=== PATIENT | female | born 1990 | race Caucasian/White ===

== ENCOUNTER 2016-08-25 22:10 | Emergency (ER) | payer OTHER ==
--- NOTE | 2016-08-25 23:29 | DIAGNOSTIC IMAGING REPORT ---
PROCEDURE: US VENOUS - RIGHT EXT INDICATION: SWELLING TECHNIQUE: Duplex sonography of the deep venous system in the right lower extremity was performed. Compression and augmentation techniques were used. COMPARISON: None. FINDINGS: Normal compression of the greater saphenous, common femoral, superficial femoral, popliteal, peroneal, and posterior tibial veins. Normal augmentation. There is no evidence of deep venous thrombosis. Varicose veins in the upper thigh with thrombus which appears to arise from the anterolateral accessory vein. IMPRESSION: 1. No evidence of a right lower extremity DVT 2. Superficial phlebitis of the varicose vein arising from the anterolateral accessory vein.
--- NOTE | 2016-08-25 23:45 | ED NURSING NOTES ---
Clinical Report - Nurses [facility] [address] [place] [address] 08/25/2016 22:12 Patient: IGOR TAYLOR TRIAGE Triage time 22:18. Acuity: LEVEL 3. Chief Complaint: RIGHT LOWER EXTREMITY PAIN, SWELLING and REDNESS. --22:33 Orly Pena R.N. 22:18 08/25/16. BP: 130/50 taken on the left arm, while sitting. HR: 85 (regular and normal rate). RR: 18. O2 saturation: 98% on room air. Temp: 98.1 F (oral). Pain level now: 09/28. --22:33 Orly Pena R.N. Weight: 134.2 kg stated. Height/Length: 68 inches Per Patient. BMI: 45. --22:23 Orly Pena R.N. Medications Albuterol Sulfate Inhalation 2 puffs, PRN. --22:29 Orly Pena R.N. Allergies No Known Drug Allergy. --22:29 Orly Pena R.N. History Arrived by private vehicle. Historian: patient. Unaccompanied. Primary physician (none). No injury occurred. This occurred (wednesday). ( redness and swelling noted to outer thigh on Wednesday extending toward upper thigh gradually since with increased pain.). She has had mild trouble walking. The patient has been limping when trying to walk. 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 PAST MEDICAL HX: Deep vein thrombosis (in 2012). Last normal menstrual period- May 28 2016. 2. Para 1. Sexual history - sexually active. Confirmed : LNMP: May 28 2016. In 1st trimester. confirmed with sonogram. Has had care by coordinator of genetic services. G 2. P 1. SOCIAL HX: Light tobacco smoker (cigarette)- less than 1/2 a pack per day. History of drug use: marijuana. (in 2016). No alcohol use. No infectious disease exposure. ABUSE ASSESSMENT: No report of abuse. SELF HARM ASSESSMENT: A self harm assessment was performed. The patient answered "no" to the question "Have you recently felt down, depressed, or hopeless?", "Have you noticed less interest or pleasure in doing things?", "Do you have thoughts of harming or killing yourself?", "Are you here because you tried to hurt yourself?", "Have you ever tried to hurt yourself before today?", "Have you recently had thoughts about harming or killing others?" and "Do you have any dangerous items in your possession?". FALL RISK ASSESSMENT: Fall risk assessment completed. No fall risk identified. NUTRITIONAL RISK ASSESSMENT: The nutritional risk assessment revealed no deficiencies. FUNCTIONAL ASSESSMENT: Functional assessment: no impairments noted. LEARNING NEEDS ASSESSMENT: The learning needs assessment revealed no barriers. SKIN INTEGRITY ASSESSMENT: Skin integrity risk assessment completed. No skin integrity risk identified. --22:33 Orly Pena R.N. PROBLEMS: . Asthma. --22:29 Orly Pena R.N. ADDITIONAL SURGERIES: Tonsillectomy. --22:29 Orly Pena R.N. Interventions ID band on patient. --22:33 Orly Pena R.N. PHYSICAL ASSESSMENT Ambulatory to room. GENERAL / NEURO / PSYCH: Oriented X 4. Alert. Appears in no acute distress. EXTREMITIES: Large area of erythema with tenderness and warmth to right thigh. Extremity pulses are within normal limits. Extremities exhibit normal ROM. Neuro-vascular status intact to the extremity. Right thigh: tenderness, swelling and erythema. SKIN: Skin intact. Skin is warm and dry. --22:33 Orly Pena R.N. NURSING PROGRESS NOTES Patient gowned. Two patient identifiers checked. Call light placed in reach. Side rails up x 1. Bed placed in lowest position. Brakes of bed on. Patient ready for evaluation- chart flagged. --22:34 Orly Pena R.N. 22:44- US tech at bedside to perform US exam. --22:44 Samina Segovia R.N. 22:40 08/25/2016 Site #1 started via IV in the right forearm with an 20g angiocath, with aseptic technique and good blood return; one attempt. Blood drawn: rainbow set. Labeled in the presence of the patient and sent to the lab. Saline lock flushed with 10 mL saline. --22:45 Orly Pena R.N. 23:58 08/25/2016 Site #1 removed upon discharge. Catheter intact. Manual pressure and bandage applied. --00:04 Orly Pena R.N. 23:58 08/25/2016 IV Saline Lock Drip IV Discontinued: discontinued upon discharge. Total amount infused: 0 mL. IV patency established. IV site checked: no pain, redness, or swelling. IV flushed thoroughly. --00:03 Orly Pena R.N. Patient ID band checked for patient name and birthdate: patient confirmed. Instructions provided to collect clean catch urine and patient verbalized understanding. Clean catch urine collected with return of yellow-colored cloudy urine, sediment noted; sample sent to lab for urinalysis and culture. Specimen labeled in the presence of the patient. --00:05 Orly Pena R.N. DISPOSITION / DISCHARGE Departure time: 8. Condition at departure: unchanged and stable. No learning barriers present. Discharge instructions provided and reviewed with the patient. Reviewed medication(s) side effects, precautions, dosing and course information. Prescription(s) given to the patient. Patient verbalized understanding. Written instructions provided in Icelandic. The patient was discharged home and unaccompanied at time of discharge. She left the Emergency Department ambulatory and via private vehicle. Patient driving. --00:06 Orly Pena R.N. 23:55 08/25/16. BP: 114/53. HR: 72 (regular and normal rate). RR: 18 (regular and unlabored). O2 saturation: 100% on room air. Temp: deferred. Pain level now: 06/29. --00:06 Orly Pena R.N. Locked/Released at 08/26/2016 0:07 by Orly Pena R.N.
--- NOTE | 2016-08-25 23:45 | ED NURSING NOTES ---
Clinical Report - Nurses [facility] [address] [place] [address] 08/25/2016 22:12 Patient: IGOR TAYLOR TRIAGE Triage time 22:18. Acuity: LEVEL 3. Chief Complaint: RIGHT LOWER EXTREMITY PAIN, SWELLING and REDNESS. --22:33 Orly Pena R.N. 22:18 08/25/16. BP: 130/50 taken on the left arm, while sitting. HR: 85 (regular and normal rate). RR: 18. O2 saturation: 98% on room air. Temp: 98.1 F (oral). Pain level now: 09/28. --22:33 Orly Pena R.N. Weight: 134.2 kg stated. Height/Length: 68 inches Per Patient. BMI: 45. --22:23 Orly Pena R.N. Medications Albuterol Sulfate Inhalation 2 puffs, PRN. --22:29 Orly Pena R.N. Allergies No Known Drug Allergy. --22:29 Orly Pena R.N. History Arrived by private vehicle. Historian: patient. Unaccompanied. Primary physician (none). No injury occurred. This occurred (wednesday). ( redness and swelling noted to outer thigh on Wednesday extending toward upper thigh gradually since with increased pain.). She has had mild trouble walking. The patient has been limping when trying to walk. 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 PAST MEDICAL HX: Deep vein thrombosis (in 2012). Last normal menstrual period- May 28 2016. 2. Para 1. Sexual history - sexually active. Confirmed : LNMP: May 28 2016. In 1st trimester. confirmed with sonogram. Has had care by geographic information systems analyst. G 2. P 1. SOCIAL HX: Light tobacco smoker (cigarette)- less than 1/2 a pack per day. History of drug use: marijuana. (in 2016). No alcohol use. No infectious disease exposure. ABUSE ASSESSMENT: No report of abuse. SELF HARM ASSESSMENT: A self harm assessment was performed. The patient answered "no" to the question "Have you recently felt down, depressed, or hopeless?", "Have you noticed less interest or pleasure in doing things?", "Do you have thoughts of harming or killing yourself?", "Are you here because you tried to hurt yourself?", "Have you ever tried to hurt yourself before today?", "Have you recently had thoughts about harming or killing others?" and "Do you have any dangerous items in your possession?". FALL RISK ASSESSMENT: Fall risk assessment completed. No fall risk identified. NUTRITIONAL RISK ASSESSMENT: The nutritional risk assessment revealed no deficiencies. FUNCTIONAL ASSESSMENT: Functional assessment: no impairments noted. LEARNING NEEDS ASSESSMENT: The learning needs assessment revealed no barriers. SKIN INTEGRITY ASSESSMENT: Skin integrity risk assessment completed. No skin integrity risk identified. --22:33 Orly Pena R.N. PROBLEMS: . Asthma. --22:29 Orly Pena R.N. ADDITIONAL SURGERIES: Tonsillectomy. --22:29 Orly Pena R.N. Interventions ID band on patient. --22:33 Orly Pena R.N. PHYSICAL ASSESSMENT Ambulatory to room. GENERAL / NEURO / PSYCH: Oriented X 4. Alert. Appears in no acute distress. EXTREMITIES: Large area of erythema with tenderness and warmth to right thigh. Extremity pulses are within normal limits. Extremities exhibit normal ROM. Neuro-vascular status intact to the extremity. Right thigh: tenderness, swelling and erythema. SKIN: Skin intact. Skin is warm and dry. --22:33 Orly Pena R.N. NURSING PROGRESS NOTES Patient gowned. Two patient identifiers checked. Call light placed in reach. Side rails up x 1. Bed placed in lowest position. Brakes of bed on. Patient ready for evaluation- chart flagged. --22:34 Orly Pena R.N. 22:44- US tech at bedside to perform US exam. --22:44 Samina Segovia R.N. 22:40 08/25/2016 Site #1 started via IV in the right forearm with an 20g angiocath, with aseptic technique and good blood return; one attempt. Blood drawn: rainbow set. Labeled in the presence of the patient and sent to the lab. Saline lock flushed with 10 mL saline. --22:45 Orly Pena R.N. 23:58 08/25/2016 Site #1 removed upon discharge. Catheter intact. Manual pressure and bandage applied. --00:04 Orly Pena R.N. 23:58 08/25/2016 IV Saline Lock Drip IV Discontinued: discontinued upon discharge. Total amount infused: 0 mL. IV patency established. IV site checked: no pain, redness, or swelling. IV flushed thoroughly. --00:03 Orly Pena R.N. Patient ID band checked for patient name and birthdate: patient confirmed. Instructions provided to collect clean catch urine and patient verbalized understanding. Clean catch urine collected with return of yellow-colored cloudy urine, sediment noted; sample sent to lab for urinalysis and culture. Specimen labeled in the presence of the patient. --00:05 Orly Pena R.N. DISPOSITION / DISCHARGE Departure time: 8. Condition at departure: unchanged and stable. No learning barriers present. Discharge instructions provided and reviewed with the patient. Reviewed medication(s) side effects, precautions, dosing and course information. Prescription(s) given to the patient. Patient verbalized understanding. Written instructions provided in Persian. The patient was discharged home and unaccompanied at time of discharge. She left the Emergency Department ambulatory and via private vehicle. Patient driving. --00:06 Orly Pena R.N. 23:55 08/25/16. BP: 114/53. HR: 72 (regular and normal rate). RR: 18 (regular and unlabored). O2 saturation: 100% on room air. Temp: deferred. Pain level now: 06/29. --00:06 Oryl Pena R.N. Locked/Released at 08/26/2016 0:07 by Orly Pena R.N.
--- NOTE | 2016-08-25 23:45 | ED CLINICAL REPORT ---
Clinical Report - Physicians/Mid Levels [facility] [address] [place] [address] 08/25/2016 22:12 Patient: IGOR TAYLOR Time Seen: 22:20. Arrived- By private vehicle. Historian- patient. HISTORY OF PRESENT ILLNESS Chief Complaint: LOWER EXTREMITY PAIN and SWELLING. Severity is described as being moderate. It has become recently worse. The quality is noted to be burning, aching and "pain". This started about 5 days ago and is still present. It was gradual in onset and has been constant. Symptoms located in the area of the right thigh. The patient has had redness and swelling. Patient denies an injury. REVIEW OF SYSTEMS Last normal menstrual period- 12 weeks EGA. 3. Para 1. Abortions 1. No chills, fever, sweats, calf pain or chest pain. No cough, difficulty breathing, pedal edema, palpitations or abdominal pain. No constipation, diarrhea, nausea, vomiting or urinary problems. All systems otherwise negative, except as recorded above. PAST HISTORY Problems: DVT - Deep Venous Thrombosis. . Asthma. Additional Surgeries: Tonsillectomy. Medications: Albuterol Sulfate Inhalation 2 puffs, PRN. Allergies: No Known Drug Allergy. SOCIAL HISTORY Current every day light tobacco smoker (cigarette)- less than 1/2 a pack per day. No alcohol use or drug use. FAMILY HISTORY she denies family history of clotting disorders. ADDITIONAL NOTES The nursing notes have been reviewed. PHYSICAL EXAM Vital Signs: Have been reviewed. Appearance: Alert. She is morbidly obese. Eyes: Pupils equal, round and reactive to light. ENT: Pharynx normal. Neck: Normal inspection. CVS: Normal heart rate and rhythm. Heart sounds normal. Respiratory: No respiratory distress. Breath sounds normal. Abdomen: Soft and nontender. No organomegaly. Back: Normal inspection. Skin: Skin intact. Skin warm and dry. Extremities: Right thigh: mild erythema and swelling and moderate tenderness located in the mid thigh. (In some areas there are visible large varicose veins with mild firmness and tenderness.). LABS, X-RAYS, AND EKG Lower Extremity Sonography: IMPRESSION: 1. No evidence of a right lower extremity DVT 2. Superficial phlebitis of the varicose vein arising from the anterolateral accessory vein. The study was independently viewed by me. Laboratory Tests: CBC w Diff: (SIRIA: 08/25/2016 22:39) ( [facility] 08/25/2016 22:59) Final results Test Result Flag Units (Reference) WHITE BLOOD COUNT 15.2 H K/uL (4.5-11.5) RED BLOOD COUNT 4.19 M/uL (4.00-5.20) HEMOGLOBIN 12.5 gm/dL (12.0-16.0) HEMATOCRIT 36.8 % (36.0-46.0) MEAN CELL VOLUME 88 fL (80-100) MEAN CORPUSCULAR HGB 30 pg (26-34) MEAN CORPUSCULAR HGB CONC 34 g/dL (31-37) RED CELL DISTRIBUTION WIDTH 13.0 % (11.6-14.8) PLATELET COUNT 266 K/uL (150-400) NEUTROPHIL % 73.9 % (50-75) LYMPH % 18.3 L % (25-40) MONO % 4.6 % (3-14) EOSINOPHIL % 2.9 % (0-4) BASOPHIL % 0.3 % (0-2) PT with INR: (SIRIA: 08/25/2016 22:39) ( [facility] 08/25/2016 23:04) Final results Test Result Flag Units (Reference) INR 1.0 (0.8-1.2) Low Intensity Therapy: INR 1.5-2.0 PT range 18.5-23.1Mod.Intensity Therapy: INR 2.0-3.0 PT range 23.1-31.5High Intensity Therapy: INR 2.5-3.5 PT range 27.4-35.5High Intensity Therapy 2: INR 3.0-4.0 PT range 31.5-39.3 APTT 25 SECONDS (24-34) CMP: (SIRIA: 08/25/2016 22:39) ( [facility] 08/25/2016 23:12) Final results Test Result Flag Units (Reference) GLUCOSE 113 H mg/dL (70-110) BUN 13 mg/dL (7-18) CREATININE 0.7 mg/dL (0.6-1.3) Estimated GFR >60 mL/min Estimated GFR- >60 mL/min Note: Persistent reduction over 3 months in eGFR<60 mL/min/1.73 m2 defines CKD. Patients with eGFR values>=60 mL/min/1.73 m2 may also have CKD if evidence ofpersistent proteinuria. Additional information may be foundat www.kidney.org. SODIUM 136 mmol/L (136-145) POTASSIUM 3.4 L mmol/L (3.5-5.1) CHLORIDE 105 mmol/L (98-107) CARBON DIOXIDE 22 mmol/L (21-32) CALCIUM 8.7 mg/dL (8.5-10.1) TOTAL PROTEIN 7.1 g/dL (6.4-8.2) ALBUMIN 3.2 L g/dL (3.3-5.0) BILIRUBIN, TOTAL 0.2 mg/dL (0.0-1.0) ALKALINE PHOSPHATASE 69 U/L (46-116) AST (SGOT) 10 L U/L (15-37) ALT (SGPT) 23 U/L (12-78) . PROGRESS AND PROCEDURES Course of Care: Patient is stable. Patient/family counseled. Old medical records reviewed. Disposition: Discharged. Condition: stable. CLINICAL IMPRESSION Superficial thrombophlebitis of the right leg associated with the first trimester of . INSTRUCTIONS Apply ice for 20 minutes four times a day until better. Don't apply ice directly to skin and don't use while asleep. No driving or operating machinery while taking medication. Do not smoke- benefits of smoking cessation discussed (>3 -10 minutes). Seek medical help to quit smoking. Warnings: Further evaluation is necessary. GENERAL WARNINGS: Return or contact your physician immediately if your condition worsens or changes unexpectedly, if not improving as expected, or if other problems arise. Prescription Medications: Tylenol with Codeine #3 (30 mg / 300 mg): take 1 tablet every 4 hours as needed for pain. Dispense fifteen (15). No refills. Substitution is permissible. Follow-up: Follow up with your doctor tomorrow. Understanding of the discharge instructions verbalized by patient. (Electronically signed by Jeovany Ingram MD 08/26/2016 0:42)
--- NOTE | 2016-08-25 23:45 | ED ORDER SUMMARY ---
..... Patient: IGOR TAYLOR OrderSheet [facility] VisitID: [id number] [place] [address] 26y, F Registration Date/Time: 08/25/2016 ORDER SHEET Weight: 134.2 kg (stated) Allergies: No Known Drug Allergy GENERAL ORDERS: CBC w Diff Urgent (22:08/25/2016 Nasrin VELOZ) (Ack 22:22 AMcQuoid ER Tech1) (22:45 CBradburn R.N.) CMP Urgent (22:08/25/2016 Nasrin VELOZ) (Ack 22:22 AMcQuoid ER Tech1) (22:45 CBradburn R.N.) PT with INR Urgent (:08/25/2016 Nasrin VELOZ) (Ack 22:22 AMcQuoid ER Tech1) (22:45 CBradburn R.N.) PTT Urgent (22:08/25/2016 Nasrin VELOZ) (Ack 22:22 AMcQuoid ER Tech1) (22:45 CBradburn R.N.) UA-Culture if indicated Urgent (22:08/25/2016 Nasrin VELOZ) (Ack 22:22 AMcQuoid ER Tech1) (0:02 CBradburn R.N.) US Venous Right Urgent (22:08/25/2016 Nasrin VELOZ) (Ack 22:22 AMcQuoid ER TechGladys) (22:45 CBradburn R.N.) MEDICATION ORDERS: IV FLUIDS: IV Saline Lock (:08/25/2016 Nasrin VELOZ) (22:45 CBradanupama R.N.) ORDER SHEET NOTES: [Electronically signed by Orly Pena R.N. (00:07 08/26/2016)] [Electronically signed by Jeovany Ingram MD (00:42 08/26/2016)] [Electronically locked/signed by Orly Pena R.N. (00:07 08/26/2016)]
--- NOTE | 2016-08-25 23:45 | ED ORDER SUMMARY ---
..... Patient: IGOR TAYLOR OrderSheet [facility] VisitID: [id number] [place] [address] 26y, F Registration Date/Time: 08/25/2016 ORDER SHEET Weight: 134.2 kg (stated) Allergies: No Known Drug Allergy GENERAL ORDERS: CBC w Diff Urgent (22:08/25/2016 Nasrin VELOZ) (Ack 22:22 AMcQuoid ER Tech1) (22:45 CBradburn R.N.) CMP Urgent (22:08/25/2016 Nasrin VELOZ) (Ack 22:22 AMcQuoid ER Tech1) (22:45 CBradburn R.N.) PT with INR Urgent (:08/25/2016 Nasrin VELOZ) (Ack 22:22 AMcQuoid ER Tech1) (22:45 CBradburn R.N.) PTT Urgent (22:08/25/2016 Nasrin VELOZ) (Ack 22:22 AMcQuoid ER Tech1) (22:45 CBradburn R.N.) UA-Culture if indicated Urgent (22:08/25/2016 Nasrin VELOZ) (Ack 22:22 AMcQuoid ER Tech1) (0:02 CBradburn R.N.) US Venous Right Urgent (22:08/25/2016 Nasrin VELOZ) (Ack 22:22 AMcQuoid ER TechGladys) (22:45 CBradburn R.N.) MEDICATION ORDERS: IV FLUIDS: IV Saline Lock (:08/25/2016 Nasrin VELOZ) (22:45 CBradanupama R.N.) ORDER SHEET NOTES: [Electronically signed by Orly Pena R.N. (00:07 08/26/2016)] [Electronically signed by Jeovany Ingram MD (00:42 08/26/2016)] [Electronically locked/signed by Orly Pena R.N. (00:07 08/26/2016)]
--- NOTE | 2016-08-26 00:43 | ED MAR SUMMARY ---
..... Medication Administration Record [facility] [address] [place], [place] [id number] Patient: IGOR TAYLOR Visit ID: [id number] 26y, F Weight: 134.2 kg Height/Length: 68 in BMI: 45 ALLERGIES: No Known Drug Allergy
--- NOTE | 2016-08-26 00:43 | ED DISCHARGE INSTRUCTIONS ---
Patient: IGOR TAYLOR General Instructions Formerly [facility] VisitID: [id number] [place] [address] 26y, F Registration Date/Time: 08/25/2016 Superficial thrombophlebitis of the right leg associated with the first trimester of . INSTRUCTIONS Apply ice for 20 minutes four times a day until better. Don't apply ice directly to skin and don't use while asleep. No driving or operating machinery while taking medication. Do not smoke- benefits of smoking cessation discussed (>3 -10 minutes). Seek medical help to quit smoking. Warnings: Further evaluation is necessary. GENERAL WARNINGS: Return or contact your physician immediately if your condition worsens or changes unexpectedly, if not improving as expected, or if other problems arise. Prescription Medications: Tylenol with Codeine #3 (30 mg / 300 mg): take 1 tablet every 4 hours as needed for pain. Dispense fifteen (15). No refills. Substitution is permissible. Follow-up: Follow up with your doctor tomorrow. Understanding of the discharge instructions verbalized by patient. ADDITIONAL INFORMATION Phlebitis, Superficial Phlebitis is the name for inflammation of a vein. This results in local redness, swelling, warmth and pain. This may occur after medicine has been given by vein as a result of the irritating effect of the medicine. It can also occur as a result of IV drug use. Superficial phlebitis involves only those veins close to the surface. There is no danger of a clot traveling to the lung or brain, unlike deep blood clots of the legs. Therefore, this condition can be safely treated at home. Home Care: Heat is helpful. Use a heating pad or soak the inflamed part in a hot tub for 10 minutes at a time. You may use ibuprofen (Motrin, Advil) to control pain, unless another medicine was prescribed. [ NOTE : If you have chronic kidney disease or ever had a stomach ulcer or GI bleeding, talk with your doctor before using these medicines.] If Your Leg Is Affected: Unless pain is severe, you may walk. It is important to sit often and elevate the leg. Avoid prolonged sitting or standing. Use support hose or an elastic wrap to compress the leg and reduce swelling. If Your Arm Is Affected: Elevate the arm. If you were given a sling, take your arm out from time to time and move it around to increase the circulation. Use an elastic wrap if there is a lot of swelling. Follow Up with your doctor as advised. Get Prompt Medical Attention if any of the following occur: Shortness of breath or painful breathing Chest pain or cough Fever of 100.4F (38C) or higher, or as directed by your healthcare provider Increasing swelling or pain Spreading redness How To Quit Smoking Smoking is one of the hardest habits to break. About half of all those who have ever smoked have been able to quit, and most of those (about 70%) who still smoke want to quit. Here are some of the best ways to stop smoking. Keep Trying: It takes most smokers about 8 tries before they are finally able to fully quit. So, the more often you try and fail, the better your chance of quitting the next time! So, don't give up! Go Cold Lindsay: Most ex-smokers quit cold turkey. Trying to cut back gradually doesn't seem to work as well, perhaps because it continues the smoking habit. Also, it is possible to fool yourself by inhaling more while smoking fewer cigarettes. This results in the same amount of nicotine in your body! Get Support: Support programs can make an important difference, especially for the heavy smoker. These groups offer lectures, methods to change your behavior and peer support. Call the free national Quitline for more information. 974-KRJF-GWF (097-976-8766). Low-cost or free programs are offered by many hospitals, local chapters of the [employer] (329-509-0868) and the [employer] (040-913-5932). Support at home is important too. Non-smokers can help by offering praise and encouragement. If the smoker fails to quit, encourage them to try again! Rnys-Wij-Ovkyuhj Medicines: For those who can't quit on their own, Nicotine Replacement Therapy (NRT) may make quitting much easier. Certain aids such as the nicotine patch, gum and lozenge are available without a prescription. However, it is best to use these under the guidance of your doctor. The skin patch provides a steady supply of nicotine to the body. Nicotine gum and lozenge gives temporary bursts of low levels of nicotine. Both methods take the edge off the craving for cigarettes. WARNING: If you feel symptoms of nicotine overdose, such as nausea, vomiting, dizziness, weakness, or fast heartbeat, stop using these and see your doctor. Prescription Medicines: After evaluating your smoking patterns and prior attempts at quitting, your doctor may offer a prescription medicine such as bupropion (Zyban, Wellbutrin), varenicline (Chantix, Champix), a niocotine inhaler or nasal spray. Each has its unique advantage and side effects which your doctor can review with you. Health Benefits Of Quitting: The benefits of quitting start right away and keep improving the longer you go without smokin minutes: blood pressure and pulse return to normal 8 hours: oxygen levels return to normal 2 days: ability to smell and taste begins to improve as damaged nerves start to regrow 2-3 weeks: circulation and lung function improves 1-9 months: decreased cough, congestion and shortness of breath; less tired 1 year: risk of heart attack decreases by half 5 years: risk of lung cancer decreases by half; risk of stroke becomes the same as a non-smoker For information about how to quit smoking, visit the following links: [employer] , Clearing the Air, Quit Smoking Today - an online booklet. http://www.smokefree.gov/pubs/clearing_the_air.pdf Smokefree.gov http://smokefree.gov/ QuitNet http://www.quitnet.com/ Acetaminophen, Codeine Phosphate Oral tablet What is this medicine? ACETAMINOPHEN; CODEINE (a set a YESY todd fen; KOE gregoria) is a pain reliever. It is used to treat mild to moderate pain. How should I use this medicine? Take this medicine by mouth with a full glass of water. Follow the directions on the prescription label. If the medicine upsets your stomach, take the medicine with food or milk. Do not take more medicine than you are told to take. Talk to your certified maintenance welder regarding the use of this medicine in children. Special care may be needed. What side effects may I notice from receiving this medicine? Side effects that you should report to your doctor or health managed care nurse as soon as possible: allergic reactions like skin rash, itching or hives, swelling of the face, lips, or tongue breathing difficulties, wheezing confusion light headedness or fainting spells severe stomach pain yellowing of the skin or the whites of the eyes Side effects that usually do not require medical attention (report to your doctor or health managed care nurse if they continue or are bothersome): dizziness drowsiness nausea, vomiting What may interact with this medicine? alcohol antihistamines benztropine drugs for bladder problems like solifenacin, trospium, oxybutynin, tolterodine, hycosamine, and methscopolamine drugs for breathing problems like ipratropium and tiotropium drugs for certain stomach or intestine problems like propantheline, homatropine methylbromide, glycopyrrolate, atropine, belladonna, and dicyclomine medicines for depression, anxiety, or psychotic disturbances medicines for sleep muscle relaxants naltrexone narcotic medicines (opiates) for pain phenothiazines like perphenazine, thioridazine, chlorpromazine, mesoridazine, fluphenazine, prochlorperazine, promazine, trifluoperazine scopolamine tramadol trihexyphenidyl What if I miss a dose? If you miss a dose, take it as soon as you can. If it is almost time for your next dose, take only that dose. Do not take double or extra doses. Where should I keep my medicine? Keep out of the reach of children. This medicine can be abused. Keep your medicine in a safe place to protect it from theft. Do not share this medicine with anyone. Selling or giving away this medicine is dangerous and against the law. Store at room temperature between 15 and 30 degrees C (59 and 86 degrees F). Protect from light. Keep container tightly closed. Throw away any unused medicine after the expiration date. Discard unused medicine and used packaging carefully. Pets and children can be harmed if they find used or lost packages. What should I tell my health care provider before I take this medicine? They need to know if you have any of these conditions: brain tumor Crohn's disease, inflammatory bowel disease, or ulcerative colitis drink more than 3 alcohol containing drinks per day drug abuse or addiction head injury heart or circulation problems kidney disease or problems going to the bathroom liver disease lung disease, asthma, or breathing problems an unusual or allergic reaction to acetaminophen, codeine, salicylates, other opioid analgesics, other medicines, foods, dyes, or preservatives or trying to get breast-feeding What should I watch for while using this medicine? Tell your doctor or health managed care nurse if your pain does not go away, if it gets worse, or if you have new or a different type of pain. You may develop tolerance to the medication. Tolerance means that you will need a higher dose of the medication for pain relief. Tolerance is normal and is expected if you take the medicine for a long time. Do not suddenly stop taking your medicine because you may develop a severe reaction. Your body becomes used to the medicine. This does NOT mean you are addicted. Addiction is a behavior related to getting and using a drug for a non medical reason. If you have pain, you have a medical reason to take pain medicine. Your doctor will tell you how much medicine to take. If your doctor wants you to stop the medicine, the dose will be slowly lowered over time to avoid any side effects. You may get drowsy or dizzy. Do not drive, use machinery, or do anything that needs mental alertness until you know how this medicine affects you. Do not stand or sit up quickly, especially if you are an older patient. This reduces the risk of dizzy or fainting spells. Alcohol may interfere with the effect of this medicine. Avoid alcoholic drinks. There are different types of narcotic medicines (opiates) for pain. If you take more than one type at the same time, you may have more side effects. Give your health care provider a list of all medicines you use. Your doctor will tell you how much medicine to take. Do not take more medicine than directed. Call emergency for help if you have problems breathing. The medicine will cause constipation. Try to have a bowel movement at least every 2 to 3 days. If you do not have a bowel movement for 3 days, call your doctor or health managed care nurse. Do not take Tylenol (acetaminophen) or medicines that have acetaminophen with this medicine. Too much acetaminophen can be very dangerous. Many nonprescription medicines contain acetaminophen. Always read the labels carefully to avoid taking more acetaminophen. Immediately call your physician or get emergency help if you are breast-feeding and your baby is sleepier than usual, is limp, or has difficulty or breathing. You have been given the following additional information: Thrombophlebitis, Superficial Smoking Cessation Acetaminophen, Codeine Phosphate Oral tablet No driving or operating machinery while taking medication. (Electronically signed by Jeovany Ingram MD 08/26/2016 0:42)
--- NOTE | 2016-08-26 00:43 | ED MED RECONCILIATION SUMMARY ---
Patient: IGOR TAYLOR Medication Reconciliation Report [facility] VisitID: [id number] [address] [place] [address] 26y, F Registration Date/Time: 08/25/2016 Weight: 134.2 kg Height/Length: 68 in. BMI: 45.0 ALLERGIES: No Known Drug Allergy The patient's Home Medications are listed below: THE FOLLOWING MEDICATIONS NEED TO BE RECONCILED: Albuterol Sulfate Inhalation 2 puffs, PRN The source(s) of the original Home Medication information: Not obtained. The following Medications were given to the patient in the Emergency Department: None. The following Medications were prescribed to the patient: Tylenol with Codeine #3 (30 mg / 300 mg): take 1 tablet every 4 hours as needed for pain. Dispense fifteen (15). No refills. Substitution is permissible. -- Jeovany Ingram MD
--- NOTE | 2016-08-26 00:43 | ED MED RECONCILIATION SUMMARY ---
Patient: IGOR TAYLOR Medication Reconciliation Report [facility] VisitID: [id number] [address] [place] [address] 26y, F Registration Date/Time: 08/25/2016 Weight: 134.2 kg Height/Length: 68 in. BMI: 45.0 ALLERGIES: No Known Drug Allergy The patient's Home Medications are listed below: THE FOLLOWING MEDICATIONS NEED TO BE RECONCILED: Albuterol Sulfate Inhalation 2 puffs, PRN The source(s) of the original Home Medication information: Not obtained. The following Medications were given to the patient in the Emergency Department: None. The following Medications were prescribed to the patient: Tylenol with Codeine #3 (30 mg / 300 mg): take 1 tablet every 4 hours as needed for pain. Dispense fifteen (15). No refills. Substitution is permissible. -- Jeovany Ingram MD
--- NOTE | 2016-08-26 00:43 | ED DISCHARGE INSTRUCTIONS ---
Patient: IGOR TAYLOR General Instructions [facility] VisitID: [id number] [place] [address] 26y, F Registration Date/Time: 08/25/2016 Superficial thrombophlebitis of the right leg associated with the first trimester of . INSTRUCTIONS Apply ice for 20 minutes four times a day until better. Don't apply ice directly to skin and don't use while asleep. No driving or operating machinery while taking medication. Do not smoke- benefits of smoking cessation discussed (>3 -10 minutes). Seek medical help to quit smoking. Warnings: Further evaluation is necessary. GENERAL WARNINGS: Return or contact your physician immediately if your condition worsens or changes unexpectedly, if not improving as expected, or if other problems arise. Prescription Medications: Tylenol with Codeine #3 (30 mg / 300 mg): take 1 tablet every 4 hours as needed for pain. Dispense fifteen (15). No refills. Substitution is permissible. Follow-up: Follow up with your doctor tomorrow. Understanding of the discharge instructions verbalized by patient. ADDITIONAL INFORMATION Phlebitis, Superficial Phlebitis is the name for inflammation of a vein. This results in local redness, swelling, warmth and pain. This may occur after medicine has been given by vein as a result of the irritating effect of the medicine. It can also occur as a result of IV drug use. Superficial phlebitis involves only those veins close to the surface. There is no danger of a clot traveling to the lung or brain, unlike deep blood clots of the legs. Therefore, this condition can be safely treated at home. Home Care: Heat is helpful. Use a heating pad or soak the inflamed part in a hot tub for 10 minutes at a time. You may use ibuprofen (Motrin, Advil) to control pain, unless another medicine was prescribed. [ NOTE : If you have chronic kidney disease or ever had a stomach ulcer or GI bleeding, talk with your doctor before using these medicines.] If Your Leg Is Affected: Unless pain is severe, you may walk. It is important to sit often and elevate the leg. Avoid prolonged sitting or standing. Use support hose or an elastic wrap to compress the leg and reduce swelling. If Your Arm Is Affected: Elevate the arm. If you were given a sling, take your arm out from time to time and move it around to increase the circulation. Use an elastic wrap if there is a lot of swelling. Follow Up with your doctor as advised. Get Prompt Medical Attention if any of the following occur: Shortness of breath or painful breathing Chest pain or cough Fever of 100.4F (38C) or higher, or as directed by your healthcare provider Increasing swelling or pain Spreading redness How To Quit Smoking Smoking is one of the hardest habits to break. About half of all those who have ever smoked have been able to quit, and most of those (about 70%) who still smoke want to quit. Here are some of the best ways to stop smoking. Keep Trying: It takes most smokers about 8 tries before they are finally able to fully quit. So, the more often you try and fail, the better your chance of quitting the next time! So, don't give up! Go Cold [place]: Most ex-smokers quit cold turkey. Trying to cut back gradually doesn't seem to work as well, perhaps because it continues the smoking habit. Also, it is possible to fool yourself by inhaling more while smoking fewer cigarettes. This results in the same amount of nicotine in your body! Get Support: Support programs can make an important difference, especially for the heavy smoker. These groups offer lectures, methods to change your behavior and peer support. Call the free national Quitline for more information. 668-HUUZ-UQC (915-161-6210). Low-cost or free programs are offered by many hospitals, local chapters of the [place] [employer] (862-927-3494) and the [place] [employer] (647-508-1995). Support at home is important too. Non-smokers can help by offering praise and encouragement. If the smoker fails to quit, encourage them to try again! [id number] Medicines: For those who can't quit on their own, Nicotine Replacement Therapy (NRT) may make quitting much easier. Certain aids such as the nicotine patch, gum and lozenge are available without a prescription. However, it is best to use these under the guidance of your doctor. The skin patch provides a steady supply of nicotine to the body. Nicotine gum and lozenge gives temporary bursts of low levels of nicotine. Both methods take the edge off the craving for cigarettes. WARNING: If you feel symptoms of nicotine overdose, such as nausea, vomiting, dizziness, weakness, or fast heartbeat, stop using these and see your doctor. Prescription Medicines: After evaluating your smoking patterns and prior attempts at quitting, your doctor may offer a prescription medicine such as bupropion (Zyban, Wellbutrin), varenicline (Chantix, Champix), a niocotine inhaler or nasal spray. Each has its unique advantage and side effects which your doctor can review with you. Health Benefits Of Quitting: The benefits of quitting start right away and keep improving the longer you go without smokin minutes: blood pressure and pulse return to normal 8 hours: oxygen levels return to normal 2 days: ability to smell and taste begins to improve as damaged nerves start to regrow 2-3 weeks: circulation and lung function improves 1-9 months: decreased cough, congestion and shortness of breath; less tired 1 year: risk of heart attack decreases by half 5 years: risk of lung cancer decreases by half; risk of stroke becomes the same as a non-smoker For information about how to quit smoking, visit the following links: National Cancer [place] , Clearing the Air, Quit Smoking Today - an online booklet. http://www.smokefree.gov/pubs/clearing_the_air.pdf Smokefree.gov http://smokefree.gov/ QuitNet http://www.quitnet.com/ Acetaminophen, Codeine Phosphate Oral tablet What is this medicine? ACETAMINOPHEN; CODEINE (a set a YESY todd fen; KOE gregoria) is a pain reliever. It is used to treat mild to moderate pain. How should I use this medicine? Take this medicine by mouth with a full glass of water. Follow the directions on the prescription label. If the medicine upsets your stomach, take the medicine with food or milk. Do not take more medicine than you are told to take. Talk to your senior ecologist regarding the use of this medicine in children. Special care may be needed. What side effects may I notice from receiving this medicine? Side effects that you should report to your doctor or health childcare worker as soon as possible: allergic reactions like skin rash, itching or hives, swelling of the face, lips, or tongue breathing difficulties, wheezing confusion light headedness or fainting spells severe stomach pain yellowing of the skin or the whites of the eyes Side effects that usually do not require medical attention (report to your doctor or health childcare worker if they continue or are bothersome): dizziness drowsiness nausea, vomiting What may interact with this medicine? alcohol antihistamines benztropine drugs for bladder problems like solifenacin, trospium, oxybutynin, tolterodine, hycosamine, and methscopolamine drugs for breathing problems like ipratropium and tiotropium drugs for certain stomach or intestine problems like propantheline, homatropine methylbromide, glycopyrrolate, atropine, belladonna, and dicyclomine medicines for depression, anxiety, or psychotic disturbances medicines for sleep muscle relaxants naltrexone narcotic medicines (opiates) for pain phenothiazines like perphenazine, thioridazine, chlorpromazine, mesoridazine, fluphenazine, prochlorperazine, promazine, trifluoperazine scopolamine tramadol trihexyphenidyl What if I miss a dose? If you miss a dose, take it as soon as you can. If it is almost time for your next dose, take only that dose. Do not take double or extra doses. Where should I keep my medicine? Keep out of the reach of children. This medicine can be abused. Keep your medicine in a safe place to protect it from theft. Do not share this medicine with anyone. Selling or giving away this medicine is dangerous and against the law. Store at room temperature between 15 and 30 degrees C (59 and 86 degrees F). Protect from light. Keep container tightly closed. Throw away any unused medicine after the expiration date. Discard unused medicine and used packaging carefully. Pets and children can be harmed if they find used or lost packages. What should I tell my health care provider before I take this medicine? They need to know if you have any of these conditions: brain tumor Crohn's disease, inflammatory bowel disease, or ulcerative colitis drink more than 3 alcohol containing drinks per day drug abuse or addiction head injury heart or circulation problems kidney disease or problems going to the bathroom liver disease lung disease, asthma, or breathing problems an unusual or allergic reaction to acetaminophen, codeine, salicylates, other opioid analgesics, other medicines, foods, dyes, or preservatives or trying to get breast-feeding What should I watch for while using this medicine? Tell your doctor or health childcare worker if your pain does not go away, if it gets worse, or if you have new or a different type of pain. You may develop tolerance to the medication. Tolerance means that you will need a higher dose of the medication for pain relief. Tolerance is normal and is expected if you take the medicine for a long time. Do not suddenly stop taking your medicine because you may develop a severe reaction. Your body becomes used to the medicine. This does NOT mean you are addicted. Addiction is a behavior related to getting and using a drug for a non medical reason. If you have pain, you have a medical reason to take pain medicine. Your doctor will tell you how much medicine to take. If your doctor wants you to stop the medicine, the dose will be slowly lowered over time to avoid any side effects. You may get drowsy or dizzy. Do not drive, use machinery, or do anything that needs mental alertness until you know how this medicine affects you. Do not stand or sit up quickly, especially if you are an older patient. This reduces the risk of dizzy or fainting spells. Alcohol may interfere with the effect of this medicine. Avoid alcoholic drinks. There are different types of narcotic medicines (opiates) for pain. If you take more than one type at the same time, you may have more side effects. Give your health care provider a list of all medicines you use. Your doctor will tell you how much medicine to take. Do not take more medicine than directed. Call emergency for help if you have problems breathing. The medicine will cause constipation. Try to have a bowel movement at least every 2 to 3 days. If you do not have a bowel movement for 3 days, call your doctor or health childcare worker. Do not take Tylenol (acetaminophen) or medicines that have acetaminophen with this medicine. Too much acetaminophen can be very dangerous. Many nonprescription medicines contain acetaminophen. Always read the labels carefully to avoid taking more acetaminophen. Immediately call your physician or get emergency help if you are breast-feeding and your baby is sleepier than usual, is limp, or has difficulty or breathing. You have been given the following additional information: Thrombophlebitis, Superficial Smoking Cessation Acetaminophen, Codeine Phosphate Oral tablet No driving or operating machinery while taking medication. (Electronically signed by Jeovany Ingram MD 08/26/2016 0:42)
--- NOTE | 2016-08-26 00:43 | ED MAR SUMMARY ---
..... Medication Administration Record [facility] [address] [place], [place] [id number] Patient: IGOR TAYLOR Visit ID: [id number] 26y, F Weight: 134.2 kg Height/Length: 68 in BMI: 45 ALLERGIES: No Known Drug Allergy
== END 2016-08-25 23:58 | disposition home or self-care (01) ==
LOC: ED SRH 22:10
DX: O22.21 Superficial thrombophlebitis in pregnancy, first trimester (principal); I80.01 Phlebitis and thrombophlebitis of superficial vessels of right lower extremity; J45.909 Unspecified asthma, uncomplicated; Z3A.12 12 weeks gestation of pregnancy; Z72.0 Tobacco use; Z79.51 Long term (current) use of inhaled steroids